=== PATIENT | female | born 1965 | race Caucasian/White ===

== ENCOUNTER 2018-02-18 05:52 | Emergency (ER) | payer BC ==
[2018-02-18 06:11] VITALS: PULSE 78
[2018-02-18 06:36] LABS: BASOPHIL % 0.2 % (0.0-0.4); Basophil (Absolute #) 0.02 (0-0.4); Eosinophil % 0.3 % (0.00-5.0); Eosinophil (Absolute #) 0.03 (0-0.5); Granulocyte Absolute (ANC) 7.57 (1.4-6.9); Granulocytes % 87.4 % (36.0-66.0); Hematocrit 43.2 % (35-47); Hemoglobin 14.6 gm/dl (12.0-16.0); Lymphocyte (Absolute #) 0.99 (1.0-4.6); Lymphocytes % 11.4 % (24.0-44.0); Mean Corpuscular Hemoglobin 29.7 pg (26-32); Mean Corpuscular Hgb Concent. 33.8 g/dl (32-36); Mean Platelet Volume 11.1 fl (6-9.5); Monocyte (Absolute #) 0.06 (0.0-1.3); Monocytes % 0.7 % (0.0-12.0); Platelet Count 220 K/mm3 (150-450); Red Blood Count 4.91 M/mm3 (4.1-5.4); Red Cell Distribution Width 12.9 % (11.5-14.0); White Blood Count 8.7 K/mm3 (4.0-10.5)
--- NOTE | 2018-02-18 06:39 | ERPHSYRPT ---
- History of Present Illness Time Seen by Provider: 02/18/18 06:30 Source: patient Exam Limitations: no limitations Patient Subjective Stated Complaint: pt co urinary urgency, bladder aching, and kidney's aching; s/s started 1 week ago; denies contacting her family dr since onset bc she thought it would go away on its own; familial h/o renal disease. Triage Nursing Assessment: pt a&o x3; skin p, w, & d; ambulated to room per self ; appears in distress r/t pain. Physician History: The patient is a 52-year-old female with her complaining of worsening urinary problems and low back pain with chills for the past week. She has a history of UTIs. She has been taking Azo and ibuprofen without improvement. She has urinary frequency, urgency, and poor stream. Her past medical history significant for UTIs, kidney stones, high cholesterol, and hypertension. Timing/Duration: week(s) (1), gradual onset, worse Activites at Onset: none Quality: aching Onset Location: suprapubic, low back pain Severity of Pain-Max: moderate Severity of Pain-Current: moderate Prior abdominal problems: similar symptoms, UTI Sexual intercourse history: non-contributory Modifying Factors: Improves With: analgesics Associated Symptoms: chills, urinary frequency, lower back pain Allergies/Adverse Reactions: No Known Drug Allergies Allergy (Unverified 02/18/18 06:10) Home Medications: Amlodipine Besylate [Norvasc] 2.5 mg PO DAILY 01/31/14 [History] Lisinopril [Zestril] 2.5 mg PO DAILY 01/31/14 [History] Metoprolol Succinate [Toprol Xl] 25 mg PO DAILY 01/31/14 [History] Atorvastatin Calcium 40 mg PO DAILY 02/18/18 [History] Hx Tetanus, Diphtheria Vaccination/Date Given: No Hx Influenza Vaccination/Date Given: Yes Hx Pneumococcal Vaccination/Date Given: Yes - Review of Systems Constitutional: Chills Eyes: No Symptoms Ears, Nose, & Throat: No Symptoms Respiratory: No Cough, No Dyspnea Cardiac: No Chest Pain, No Edema, No Syncope Abdominal/Gastrointestinal: Abdominal Pain Genitourinary Symptoms: Dysuria, Frequency, Hesitancy Musculoskeletal: Back Pain Skin: No Rash Neurological: No Dizziness, No Focal Weakness, No Sensory Changes Psychological: No Symptoms Endocrine: No Symptoms Hematologic/Lymphatic: No Symptoms Immunological/Allergic: No Symptoms All Other Systems: Reviewed and Negative - Past Medical History Pertinent Past Medical History: Yes Cardiac History: Hypertension Psycho-Social History: Depression - Past Surgical History Past Surgical History: Yes Musculoskeletal: Orthopedic Surgery Female Surgical History: Section Other Surgical History: thermal ablation - Social History Smoking Status: Never smoker Exposure to second hand smoke: No Drug Use: none Patient Lives Alone: No - Female History Hx Last Menstrual Period: hyster - Nursing Vital Signs Nursing Vital Signs: Initial Vital Signs Temperature 99.1 F 02/18/18 05:59 Pulse Rate 78 02/18/18 05:59 Respiratory Rate 20 02/18/18 05:59 Blood Pressure 165/83 02/18/18 05:59 O2 Sat by Pulse Oximetry 99 02/18/18 05:59 Pain Scale Pain Intensity 8 - Physical Exam General Appearance: no apparent distress, alert Eye Exam: PERRL/EOMI, eyes nml inspection Ears, Nose, Throat Exam: normal ENT inspection, TMs normal, pharynx normal, moist mucous membranes Neck Exam: normal inspection, non-tender, supple, full range of motion Respiratory Exam: normal breath sounds, lungs clear, No respiratory distress Cardiovascular Exam: regular rate/rhythm, normal heart sounds, normal peripheral pulses Gastrointestinal/Abdomen Exam: tenderness (suprapubic; low back tenderness) Pelvic Exam: not done Rectal Exam: not done Back Exam: normal inspection, normal range of motion, No CVA tenderness, No vertebral tenderness Extremity Exam: normal inspection, normal range of motion, pelvis stable Neurologic Exam: alert, oriented x 3, cooperative, milk pasteurizer II-XII nml as tested, normal mood/affect, sensation nml, No motor deficits Skin Exam: normal color, warm, dry Lymphatic Exam: No adenopathy SpO2 Interpretation: normal SpO2: 99 Oxygen Delivery: Room Air Ordered Tests: Active Orders 24 hr Category Date Time Status BMP Stat Lab 02/18/18 06:30 Completed CBC W DIFF Stat Lab 02/18/18 06:30 Completed CULTURE,URINE Stat Lab 02/18/18 06:30 Received UA W/ MICROSCOPIC Stat Lab 02/18/18 06:30 Completed Lab/Rad Data: Laboratory Result Diagrams 02/18/18 06:30 02/18/18 06:30 Laboratory Results 02/18/18 02/18/18 02/18/18 Range/Units 06:30 06:30 06:30 WBC 8.7 (4.0-10.5) K/mm3 RBC 4.91 (4.1-5.4) M/mm3 Hgb 14.6 (12.0-16.0) gm/dl Hct 43.2 (35-47) % MCV 88.0 (78-100) fl MCH 29.7 (26-32) pg MCHC 33.8 (32-36) g/dl RDW 12.9 (11.5-14.0) % Plt Count 220 (150-450) K/mm3 MPV 11.1 H (6-9.5) fl Gran % 87.4 H (36.0-66.0) % Eos # (Auto) 0.03 (0-0.5) Absolute Lymphs (auto) 0.99 L (1.0-4.6) Absolute Monos (auto) 0.06 (0.0-1.3) Lymphocytes % 11.4 L (24.0-44.0) % Monocytes % 0.7 (0.0-12.0) % Eosinophils % 0.3 (0.00-5.0) % Basophils % 0.2 (0.0-0.4) % Absolute Granulocytes 7.57 H (1.4-6.9) Basophils # 0.02 (0-0.4) Sodium 141 (137-145) mmol/L Potassium 4.0 (3.5-5.1) mmol/L Chloride 106 (98-107) mmol/L Carbon Dioxide 23 (22-30) mmol/L Anion Gap 15.5 H (5-15) MEQ/L BUN 14 (7-17) mg/dL Creatinine 0.85 (0.52-1.04) mg/dL Estimated GFR > 60.0 ML/MIN Glucose 119 H (74-106) mg/dL Calcium 9.5 (8.4-10.2) mg/dL Ur Collection Type CLEAN CATCH Urine Color ORANGE (YELLOW) Urine Appearance CLOUDY (CLEAR) Urine pH 6.0 (5-6) Ur Specific [place] 1.015 (1.005-1.025) Urine Protein 300 (Negative) Urine Ketones NEGATIVE (NEGATIVE) Urine Blood 250 (0-5) Mart/ul Urine Nitrite POSITIVE (NEGATIVE) Urine Bilirubin COLOR INTERFERENCE (NEGATIVE) Urine Urobilinogen COLOR INTERFERENCE (0-1) mg/dL Ur Leukocyte Esterase 2+ (NEGATIVE) Urine Microscopic RBC 5-10 (0-2) /HPF Urine Microscopic WBC >100 (0-5) /HPF Ur Epithelial Cells FEW (FEW) /HPF Urine Bacteria MODERATE (NEGATIVE) /HPF Urine Mucus SLIGHT (NEGATIVE) /HPF Urine Culture Reflexed YES (NO) Urine Glucose NEGATIVE (NEGATIVE) mg/dL Specimen Received 02-18-1830 - Progress Progress: improved Counseled pt/family regarding: lab results, diagnosis, need for follow-up - Departure Time of Disposition: 06:56 Departure Disposition: Home Clinical Impression: UTI (urinary tract infection) Condition: Stable Critical Care Time: No Referrals: YULISA ARMSTRONG MD [Primary Care Provider] - Additional Instructions: You have a UTI. You were given Rocephin 1 g IV in the ER. Continue his ciprofloxacin 500 mg 2 times a day for 7 days. Take ibuprofen and Tylenol as needed for discomfort. Follow-up with your primary medical doctor in about one week. Prescriptions: Ciprofloxacin [Cipro 500 MG] 1 tab PO BID #14 tablet
[2018-02-18 06:42] LABS: Appearance CLOUDY (CLEAR); Bilirubin COLOR INTERFERENCE (NEGATIVE); Blood 250 Ery/ul (0-5); Glucose NEGATIVE (NEGATIVE); Ketones NEGATIVE (NEGATIVE); Leukocyte Esterase 2+ (NEGATIVE); Nitrite POSITIVE (NEGATIVE); Protein,Urine Dip 300 (Negative); Specific Gravity 1.015 (1.005-1.025); Urobilinogen COLOR INTERFERENCE mg/dL (0-1)
[2018-02-18 06:51] LABS: Bacteria MODERATE /HPF (NEGATIVE); Epithelial Cells FEW /HPF (FEW); Mucus SLIGHT /HPF (NEGATIVE); WBC >100 /HPF (0-5)
[2018-02-18 06:52] LABS: ANION GAP 15.5 MEQ/L (5-15); BLOOD UREA NITROGEN 14 mg/dL (7-17); CHLORIDE 106 mmol/L (98-107); Calcium 9.5 mg/dL (8.4-10.2); Carbon Dioxide 23 mmol/L (22-30); Creatinine 1 0.85 mg/dL (0.52-1.04); Glucose 119 mg/dL (74-106); SODIUM 141 mmol/L (137-145)
[2018-02-18] MEDS ORDERED: ROCEPHIN 1 Gm-D5w 50 ml Bag** 1 G/50 ML IVPB IV ONE (06:59)
[2018-02-18] MEDS: ROCEPHIN 1 Gm-D5w 50 ml Bag** 1 G/50 ML IVPB IV STA (06:59)
[2018-02-18 07:43] VITALS: BP 114/59; O2SAT 97
== END 2018-02-18 07:42 | disposition home or self-care (01) ==
LOC: ED 05:52
DX: N39.0 Urinary tract infection, site not specified (principal); F32.9 Major depressive disorder, single episode, unspecified
CPT/HCPCS: 36000; 36415; 80048; 81000; 85025; 87077; 87086; 87186; 96365; 99284; J0696